=== PATIENT | female | born 1985 | race Caucasian/White ===

== ENCOUNTER 2017-08-11 06:28 | Emergency (ER) | payer OTHER ==
[~2017-08-11] VITALS: Ht 177.8 cm; Wt 86.2 kg
[~2017-08-11 06:28] MED LIST: BACTRIM,SEPT1 TABLET PO; CLONIDINE HCL0.1 MG PO; NOHOMEMEDS; TRAZODONE HCL50 MG PO; ZOFRAN4 MG PO
[2017-08-11] MEDS ORDERED: KEFLEX500 MG PO ×2 (08:36→08:49)
[2017-08-11 08:53] VITALS: BP 125/65
== END 2017-08-11 08:53 | disposition home or self-care (01) ==
LOC: EME 06:28
PROC: 0H91XZZ Drainage of Face Skin, External Approach (ICD-10-PCS; principal; 2017-08-11)
DX: L02.01 Cutaneous abscess of face (principal); F17.200 Nicotine dependence, unspecified, uncomplicated
CPT/HCPCS: 99281; 99283